=== PATIENT | male | born 1985 | race Caucasian/White ===

== ENCOUNTER → 2024-06-16 07:15 | Outpatient (REF) | payer OTHER, SELFPAY | LOC: HWRAD 07:15 | PROVIDERS: ATTENDING PHYSICIAN Family Medicine | DX: R79.89 Other specified abnormal findings of blood chemistry (principal); R10.11 Right upper quadrant pain | CPT/HCPCS: 76700 ==

== ENCOUNTER 2025-08-08 06:17 | Day surgery (SDC) | payer OTHER, SELFPAY | END 2025-08-08 09:24 | disposition home or self-care (01) | LOC: GI 06:17 | PROVIDERS: ATTENDING PHYSICIAN Internal Medicine | DX: R12 Heartburn (principal); K44.9 Diaphragmatic hernia without obstruction or gangrene; K22.10 Ulcer of esophagus without bleeding | CPT/HCPCS: 43239; 88305; 88342 ==